=== PATIENT | female | born 2000 | race Caucasian/White ===

== ENCOUNTER 2025-07-24 08:54 | Outpatient (AMB) | payer MEDICAID, SELFPAY ==
--- NOTE | 2025-07-24 09:10 | AMB.OBINITIA ---
Vital Signs 07/24/25 09:11 Height 1.52 m Height Method Stated Weight 58.57 kg Weight Measurement Method Standing Scale BMI 25.2 BP 121/79 Blood Pressure Source Automatic Cuff Blood Pressure Location Left Upper Arm Position Sitting Respiration 18 Pulse 68 Pulse Source Monitor Temp 98.2 F Temp Source Oral Pulse Oximetry (%) 98 Oxygen Delivery Method Room Air Allergies/Home Meds Allergies & Medications Allergies No Known Allergies Allergy (Verified 07/24/25 09:11) Medication Reconciliation ondansetron HCl 8 mg tablet 8 mg PO Q8H 48 hours #30 tabs 07/24/25 [Rx] pyridoxine (vitamin B6) 50 mg capsule (Vitamin B-6) 50 mg PO BID #60 caps 07/24/25 [Rx] Intake Visit Data Collection New Patient or Established: New Patient (never been to [facility]) Reason for Visit:: OBI TRANSFER Seen by Clinical Staff ONLY (RN/MA): No 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 Required: No Do You Feel Safe at Home: Yes Authorities Contacted: N/A PCP or OBGYN visit in last 3 months: Yes Hx Now: Yes Are you currently on any form of Control: No Last menstrual period: 03/29/25 Pain Present Currently: No Pain Scale Used: [place]/Numerical Pain scale:: 0 Smoking Status Smoking Status: Never smoker Immunizations Flu Vaccine in the Last 12 Months: No Flu Vaccine Exclusion Criteria: Refused by Patient Questionnaires Covid-19 Vaccine Questionnaire Has patient been vacinated for Covid-19 Have you been vacinated for Covid-19: No PHQ-9 PHQ-2 Over the last 2 weeks, how often have you been bothered by any of the following problems? 1. Little interest or pleasure in doing things: not at all 2. Feeling down, depressed, or hopeless: not at all Total score: 0 PHQ-9 3. Trouble falling or staying asleep, or sleeping too much: Not at all 4. Feeling tired or having little energy: Not at all 5. Poor appetite or overeating: Not at all 6. Feeling bad about yourself - or that you are a failure or have let yourself or your family down: Not at all 7. Trouble concentrating on things, such as reading the newspaper or watching television: Not at all 8. Moving or speaking so slowly that other people could have noticed? - Or the opposite - being so fidgety or restless that you have been moving around a lot more than usual: not at all 9. Thoughts that you would be better off or of hurting yourself in some way: Not at all Total score: 0 If you checked off any problems, how difficult have these problems made it for you to do your work, take care of things at home, or get along with other people?: not difficult at all Source: Developed by Drs. Reinaldo Neff, Darya Lazo, Ricco Fang and colleagues, with an educational areli from [employer]. Depression screen completed yes Social History Living Situation History Marital Status: Single Lives With: Family Housing: House Tobacco History Smoking Status: Never smoker Second Hand Smoke Exposure: No Alcohol History Alcohol Intake: Never Domestic Abuse History Do You Feel Safe at Home: Yes OB Initial Visit OB Flowsheet OB Flowsheet Initial Weight: Not Recorded Date <del>?</del> EGA Weight BP Alb Glu CTX Pres Fundal ht FHR Mov Dilation Station Effacement Hx Notes Visit Note 07/24/25 <del>?</del> 16w 5d 58.57 kg 121/79 absent unknown 16 145 absent 24-year-old 1 para 0 for OBI. Patient should be seen in [facility]. She has limited records. Denies SAB complaints. Reports on no leaking and no bleeding. She is not sure that she feels movement. Complains of increased nausea and vomiting. Schedule ultrasound at [facility] with M for anatomy scan. OB panel with NIPT, AFP and SMA. Discussed comfort measures for nausea and vomiting. I gave patient Zofran 8 mg p.o. every 8 as needed for nausea along with vitamin B6 50 mg p.o. twice daily and we discussed comfort measures for nausea and vomiting. Return in 4 weeks OB check Menstrual History Menstrual reliability: definite Flow: normal Menstrual regularity: regular Monthly: Yes Age at menarche: 14 On control pills at conception: No OB History : 1 Para: 0 Hx # Pregnancies: 0 Hx Total # of Abortions (Spontaneous & Elective): 0 # of Living Children: 0 Infection History & Risk Evaluation History of STDs: none HIV risk evaluation: low risk Hepatitis B risk evaluation: low risk Patient or partner has history of Genital Herpes: No Varicella/chicken pox status: immunized Genetic Screening & History Genetic Screening/Teratology Counseling - Includes patient, baby's father, or anyone in either family with: 1. Patient's age 35 years or older as of estimated date of delivery: No 2. Thalassemia (Thai, Azeri, Mediterranean, or Background); MCV less than 80: No 3. Neural Tube Defect (Meningomyelocele, Spina Bifida, or Anencephaly): No 6. Harley-Sachs (Ashkenazi Anabaptist, Cajun, Uzbek [place]): No 7. Javed Disease (Ashkenazi Anabaptist): No 8. Familial Dysautonomia (Ashkenazi Anabaptist): No 9. Sickle Cell Disease or Trait (): No 10. Hemophilia or other blood disorders: No 11. Muscular Dystrophy: No 12. Cystic Fibrosis: No 13. [place]'s Chorea: No 14. Mental Retardation/Autism: No 15. Other inherited genetic or chromosomal disorder: No 16. Maternal Metabolic Disorder (EG,TYPE 1 Diabetes, PKU): No 17. Patient or baby's father had a child with defects not listed above: No 18. Recurrent loss or a stillbirth: No 19. Medications (including supplements, vitamins, herbs or otc drugs)/illicit/recreational drugs/alcohol since last menstrual period: No 20. Any other: No Infection History 1. Live with someone with TB or exposed to TB: No 2. Rash or viral illness since last menstrual period: No 3. 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 And we did NIPT and carrier screen today. aFP today. Discussed SAB precautions. Return in 4 weeks OB check. Continue prenatals Additional Plan Follow Up: 4 Weeks (OBC)
[2025-07-24 09:11] VITALS: BP 121/79; PULSE 68; RESP 18; TEMP 36.8; O2SAT 98; BMI 25.2
== END 2025-07-24 10:11 | disposition home or self-care (01) ==
PROVIDERS: PCP Nurse Practitioner; Referring Provider Nurse Practitioner; Supervising Provider Advanced Practice Midwife; Visit Provider Advanced Practice Midwife
DX: O09.892 Supervision of other high risk pregnancies, second trimester (principal); O21.9 Vomiting of pregnancy, unspecified; Z3A.16 16 weeks gestation of pregnancy
CPT/HCPCS: 99203; G0463